=== PATIENT | male | born 1945 | race Caucasian/White ===

== ENCOUNTER 2017-08-10 09:21 | Outpatient (CLI) | payer OTHER ==
[~2017-08-10 09:21] MED LIST: COREG CR20 MG; HYZAAR 50/12.51 TAB
== END 2017-08-10 15:59 | disposition home or self-care (01) ==
LOC: MRI 09:21
DX: I72.8 Aneurysm of other specified arteries (principal); I65.1 Occlusion and stenosis of basilar artery; I65.09 Occlusion and stenosis of unspecified vertebral artery; I65.29 Occlusion and stenosis of unspecified carotid artery; Q28.2 Arteriovenous malformation of cerebral vessels; R41.3 Other amnesia; D49.6 Neoplasm of unspecified behavior of brain; G40.909 Epilepsy, unspecified, not intractable, without status epilepticus
CPT/HCPCS: 70544; 70553; A9579

== ENCOUNTER 2020-02-23 11:47 | Inpatient (IN) | payer OTHER ==
[~2020-02-23] VITALS: Ht 172.7 cm; Wt 72.6 kg
[2020-02-23] MEDS ORDERED: LIPITOR20 MG PO (12:02)
[2020-02-23] MEDS ORDERED: CARVEDILOL ER40 MG PO (12:03)
[2020-02-23] MEDS ORDERED: ASPIR 8181 MG PO (12:03)
[2020-02-23] MEDS ORDERED: LEVAQUIN750 MG PO (12:04)
[2020-02-23] MEDS ORDERED: LOSARTAN-HCTZ1 EAC2 PO (12:04)
[2020-02-23] MEDS ORDERED: TRIPLE ANTIBIO OP (12:05)
[2020-02-29] MEDS ORDERED: ASA-EC81 MG PO (11:48)
[2020-02-29] MEDS ORDERED: HYZAAR 100-12.1 EACH PO (11:48)
[2020-02-29] MEDS ORDERED: CARVEDILOL12.5 MG PO (11:48)
[2020-02-29] MEDS ORDERED: LIPITOR20 MG PO (11:48)
[2020-02-29] MEDS ORDERED: AMOX-CLAV 875-1 EACH PO (11:48)
[2020-02-29] MEDS ORDERED: INTESTINEX680 M1 PO (11:48)
[2020-02-29] MEDS ORDERED: CHLORHEXIDINE118 M1 TOP (11:48)
== END 2020-02-29 14:07 | disposition home or self-care (01) | DRG 603 ==
LOC: ER 11:47 → MEDI 02-24 09:06
PROVIDERS: ADMIT Internal Medicine; ATTEND Internal Medicine
PROC: 8E0ZXY6 Isolation (ICD-10-PCS; principal; 2020-02-24)
DX: L03.116 Cellulitis of left lower limb (principal); L02.416 Cutaneous abscess of left lower limb; I10 Essential (primary) hypertension; E86.0 Dehydration; E78.5 Hyperlipidemia, unspecified; Z20.828 Contact with and (suspected) exposure to other viral communicable diseases; B95.62 Methicillin resistant Staphylococcus aureus infection as the cause of diseases classified elsewhere